=== PATIENT | female | born 1945 | race Caucasian/White ===

== ENCOUNTER → 2020-11-02 | Outpatient (CLI) | payer MEDICARE, OTHER ==
[~2020-11-02] MED LIST: ASPIRIN EC81 MG PO; AUGMENTIN 875-1 EACH PO; EUTHYROX50 MCG PO; LEVOFLOXACIN500 MG PO; OMEPRAZOLE20 M1 PO; THERA-TABS1 EACH PO; TORADOL 10 MG T10 MG PO; VITAMIN D325 MCG PO; VITAMIN E400 UNI2 PO; VITAMIN E400 UNI5 PO; ZETIA10 MG PO; ZOFRAN ODT 4 MG4 MG SL
== END ==
LOC: CT 13:33
DX: U07.1 COVID-19 (principal); J12.82 Pneumonia due to coronavirus disease 2019
CPT/HCPCS: 71260; 82565; Q9967

== ENCOUNTER 2021-03-22 09:03 | Emergency (ER) | payer MEDICARE, OTHER ==
[~2021-03-22 09:03] MED LIST changes: -TORADOL 10 MG T10 MG PO; -ZOFRAN ODT 4 MG4 MG SL
[2021-03-22 10:02] LABS: HEMOGLOBIN 14.6 gm/dl (12.3-15.3); RED BLOOD COUNT 4.7 M/UL (4.00-5.10); WHITE BLOOD COUNT 7.5 K/UL (4.5-11.0)
[2021-03-22 10:07] LABS: BUN/CREATININE RATIO 25 (0-10)
[2021-03-22] MEDS ORDERED: TORADOL 10 MG T10 MG PO (11:16)
[2021-03-22] MEDS ORDERED: ZOFRAN ODT 4 MG4 MG SL (11:16)
== END 2021-03-22 11:20 | disposition home or self-care (01) ==
LOC: ER1 09:03
PROVIDERS: Physician Assistant
DX: N13.2 Hydronephrosis with renal and ureteral calculous obstruction (principal); K21.9 Gastro-esophageal reflux disease without esophagitis; Z86.16 Personal history of COVID-19; Z90.710 Acquired absence of both cervix and uterus; Z90.49 Acquired absence of other specified parts of digestive tract; Z79.899 Other long term (current) drug therapy
CPT/HCPCS: 80053; 81001; 85025; 96374; 96375; 99284; J1885; J2405; J7030

== ENCOUNTER → 2021-06-15 | Outpatient (CLI) | payer MEDICARE, OTHER ==
[~2021-06-15] MED LIST changes: +TORADOL 10 MG T10 MG PO; +ZOFRAN ODT 4 MG4 MG SL
== END ==
LOC: KOH-I 11:38
DX: M54.5 Low back pain (principal); M47.816 Spondylosis without myelopathy or radiculopathy, lumbar region
CPT/HCPCS: 72100